=== PATIENT | male | born 1970 | race Caucasian/White ===

== ENCOUNTER 2022-10-15 06:37 | Emergency (ER) | payer OTHER ==
[~2022-10-15] VITALS: Ht 170.2 cm; Wt 83.9 kg
--- NOTE | 2022-10-15 06:45 | NUR ---
BIBS C/O LEFT SIDED CP SINCE MONDAY. TYLENOL AND ADVIL TENANT COORDINATOR WITH RELIEF. PATIENT IS PLACED COMFORTABLY IN BED. VITALS CHECKED. -SOB AND NOT IN CP DISTRESS AT THE MOMENT
--- NOTE | 2022-10-15 06:59 | NUR ---
EKG DONE AT BEDSIDE
--- NOTE | 2022-10-15 07:15 | NUR ---
REVEIVED PT FROM MICHELINE ZAPATA PT AWAKE AND ALERT NO SOB
--- NOTE | 2022-10-15 07:30 | NUR ---
BLOOD DROW BY LAB TACH PT REFUSED TO INSERTED IV LINE
[2022-10-15 07:49] LABS: BASOPHILS % (AUTO) 0.1 % (0.0-2.0); HEMATOCRIT 40 % (39-51); HEMOGLOBIN 13.6 g/dL (13.5-17.5); LYMPHOCYTES # (AUTO) 0.8 K/uL (0.8-4.8); LYMPHOCYTES % (AUTO) 5.7 % (20.0-44.0); MEAN CORPUSCULAR HGB CONC 34 g/dl (31.0-36.0); MEAN CORPUSCULAR VOLUME 89 fL (80-96); MONOCYTES # (AUTO) 0.8 K/uL (0.1-1.30); MONOCYTES % (AUTO) 6.2 % (2.0-12.0); PLATELET COUNT (AUTO) 169 K/uL (150-450); RED BLOOD CELL COUNT(AUTO) 4.47 MIL/uL (4.5-6.0); WHITE BLOOD COUNT (AUTO) 13.7 K/uL (4.3-11.0)
[2022-10-15 08:24] LABS: CARBON DIOXIDE 26 mmol/L (21-32); CHLORIDE 102 mmol/L (98-107); CREATININE 1.3 mg/dL (0.6-1.3); GLUCOSE 122 mg/dL (74-106); POTASSIUM 3.9 mmol/L (3.5-5.1); SODIUM SERUM 134 mmol/L (136-145); UREA NITROGEN, BLOOD 17 mg/dL (7-18)
[2022-10-15 08:31] LABS: CALCIUM, SERUM 9.1 mg/dL (8.5-10.1)
[2022-10-15] MEDS ORDERED: NAPR-1164 PO (09:09)
[2022-10-15] MEDS ORDERED: AZIT250T13 PO (09:09)
[2022-10-15] MEDS ORDERED: AMOX500T2 PO (09:09)
--- NOTE | 2022-10-15 09:20 | NUR ---
Note trinaone in EDM - 10/15/22 at 0928 by KOMAL IV removed. Catheter intact and site benign. Pressure and 4x4 applied to site. No bleeding noted.
--- NOTE | 2022-10-15 09:22 | NUR ---
Patient discharged to home in stable condition. Written and verbal after care instructions given. Patient verbalizes understanding of instruction.
--- NOTE | 2022-10-15 09:28 | NUR ---
Phil estrlela in ED - 10/15/22 at 0931 by KOMAL Patient discharged to home in stable condition. Written and verbal after care instructions given. Patient verbalizes understanding of instruction.
[2022-10-15 09:31] VITALS: BP 136/86
== END 2022-10-15 09:33 | disposition home or self-care (01) ==
LOC: ER 06:49
DX: J18.9 Pneumonia, unspecified organism (principal); R07.9 Chest pain, unspecified
CPT/HCPCS: 36415; 71045-TC; 80048-TC; 84484-TC; 85025-TC